=== PATIENT | female | born 1995 | race Caucasian/White ===

== ENCOUNTER 2021-12-28 19:16 | Emergency (ER) | payer OTHER ==
[~2021-12-28] VITALS: Ht 162.6 cm; Wt 75.8 kg
[~2021-12-28 19:16] MED LIST: FERR325E14 PO; IBUP-974 PO; PREN-385 PO
[2021-12-28 21:40] VITALS: BP 122/76
--- NOTE | 2021-12-28 21:43 | NUR ---
PT TO LOBBY.
[2021-12-28 22:25] LABS: APPEARANCE,URINE CLEAR (CLEAR); BILIRUBIN,URINE NEGATIVE (NEGATIVE); BLOOD, URINE 1+ (NEGATIVE); COLOR,URINE YELLOW (YELLOW); LEUKOCYTE ESTERASE ,URINE NEGATIVE (NEGATIVE); NITRITE, URINE NEGATIVE (NEGATIVE); UGLUCOSE NEGATIVE (NEGATIVE)
[2021-12-28 22:38] LABS: BASOPHILS % (AUTO) 0.4 % (0.0-2.0); HEMATOCRIT 38.4 % (36-48); HEMOGLOBIN 12.8 g/dL (12.0-16.0); LYMPHOCYTES # (AUTO) 0.9 K/uL (2.5-16.5); LYMPHOCYTES % (AUTO) 17.3 % (20.5-51.1); MEAN CORPUSCULAR HEMOGLOBIN 29 pg (27-31); MEAN CORPUSCULAR HGB CONC 33 g/dL (33-37); MEAN CORPUSCULAR VOLUME 87.2 fL (80-94); MONOCYTES # (AUTO) 0.3 K/uL (0.8-1.0); MONOCYTES % (AUTO) 6.4 % (1.7-9.3); NEUTROPHILS % (AUTO) 75.9 % (42.2-75.2); PLATELET COUNT (AUTO) 244 K/uL (140-450); RED BLOOD CELL COUNT(AUTO) 4.41 MIL/uL (4.20-5.40); RED CELL DISTRIBUTION WIDTH 14.1 % (11.6-13.7); WHITE BLOOD COUNT (AUTO) 5.2 K/uL (4.8-10.8)
[2021-12-28 22:40] LABS: RBC,URINE 0-5 /HPF (0-5); WBC,URINE 0-5 /HPF (0-5)
[2021-12-28 22:55] LABS: ALBUMIN 3.7 g/dL (3.4-5.0); ANION GAP 16.8 (8-16); CARBON DIOXIDE 25.6 mmol/L (21-32); CREATININE 0.7 mg/dL (0.6-1.3); POTASSIUM 3.4 mmol/L (3.5-5.1); TOTAL BILIRUBIN 0.3 mg/dL (0.0-1.0)
[2021-12-28] MEDS ORDERED: NACL 0.9% 1,000 ML IV ONE (23:40)
[2021-12-28] MEDS ORDERED: ONDANSETRON 4 MG/2 ML VIAL IVP ONE (23:40)
[2021-12-28] MEDS ORDERED: cefTRIAXone 1,000 MG VIAL ONE (23:53)
--- NOTE | 2021-12-29 00:07 | NUR ---
PT TAKEN TO ER BED 05
--- NOTE | 2021-12-29 01:40 | NUR ---
26YR OLD FEMALE BIB SELF C/O OF ABD PAIN V/D X1 DAY. PAIN IS SHARP AND RADIATES TO BACK PAIN LEVEL OF 8/10. PT IS A&OX4. SKIN WARM DRY AND INTACT. HOB ELEVATED. RESP EVEN AND UNLABORED. ON BEDSIDE CITRUS PICKER. NKDA NO MED HX
[2021-12-29] MEDS ORDERED: ONDA-188 SL (02:49)
[2021-12-29] MEDS ORDERED: CIPR500T4 PO (02:49)
--- NOTE | 2021-12-29 03:10 | NUR ---
Patient discharged with v/s stable. Written and verbal after care instructions given and explained. Patient alert, oriented and verbalized understanding of instructions. Ambulatory with steady gait. All questions addressed prior to discharge. ID band removed. Patient advised to follow up with PMD. Rx of CIPRO AND ZOFRAN given. Patient educated on indication of medication including possible reaction and side effects. Opportunity to ask questions provided and answered.
[2021-12-29 03:12] VITALS: BP 93/52
== END 2021-12-29 03:10 | disposition home or self-care (01) ==
LOC: MED 19:16
DX: N12 Tubulo-interstitial nephritis, not specified as acute or chronic (principal); R11.2 Nausea with vomiting, unspecified; M54.50 Low back pain, unspecified; Z79.899 Other long term (current) drug therapy
CPT/HCPCS: 36415; 80053; 81001; 81025; 85025; 87086; 96365; 96375; 99284; J0696; J2405; J7030

== ENCOUNTER 2022-09-27 09:05 | Emergency (ER) | payer BC, OTHER ==
[~2022-09-27] VITALS: Ht 162.6 cm; Wt 76.2 kg
[~2022-09-27 09:05] MED LIST changes: +CIPR500T4 PO; +ONDA-188 SL
[2022-09-27 09:36] VITALS: BP 109/67; PULSE 94; RESP 18; TEMP 97.6; O2SAT 98
--- NOTE | 2022-09-27 09:40 | NUR ---
Patient ambulated to bed 3.
--- NOTE | 2022-09-27 09:56 | NUR ---
bibs for low back pain since this am. no fall, trauma, urinary sx. + heavy lifting at work. ambulatory. reports sycopal episode this am. denies headache,n,v. aao x4. resp even and nonlabored. vss
[2022-09-27] MEDS ORDERED: IBUPROFEN 400 MG TAB PO ONE (10:25)
[2022-09-27] MEDS ORDERED: NAPR-1704 PO (10:28)
[2022-09-27 10:34] VITALS: BP 112/74; PULSE 78; RESP 19; TEMP 97.6; O2SAT 98
--- NOTE | 2022-09-27 10:35 | NUR ---
pain reassessment not done. d/c before due
== END 2022-09-27 10:35 | disposition home or self-care (01) ==
LOC: MED 09:05
DX: R55 Syncope and collapse (principal); M54.50 Low back pain, unspecified; H11.31 Conjunctival hemorrhage, right eye; Z79.899 Other long term (current) drug therapy
CPT/HCPCS: 81025; 99282

== ENCOUNTER 2022-10-01 23:16 | Emergency (ER) | payer BC, OTHER ==
[~2022-10-01] VITALS: Ht 162.6 cm; Wt 73.0 kg
[~2022-10-01 23:16] MED LIST changes: +NAPR-1704 PO
[2022-10-01 23:53] VITALS: BP 104/70; PULSE 70; RESP 16; TEMP 98; O2SAT 100
--- NOTE | 2022-10-01 23:53 | NUR ---
TO BED AMBULATORY
[2022-10-02] MEDS ORDERED: NACL 0.9% 1,000 ML IV ONE
--- NOTE | 2022-10-02 00:16 | NUR ---
URINE TO LAB.
[2022-10-02 00:21] LABS: BASOPHILS % (AUTO) 0.3 % (0.0-2.0); EOSINOPHILS % (AUTO) 0.9 % (0.0-4.0); HEMATOCRIT 34.1 % (36-48); HEMOGLOBIN 11.4 g/dL (12.0-16.0); LYMPHOCYTES # (AUTO) 1.8 K/uL (2.5-16.5); LYMPHOCYTES % (AUTO) 31.9 % (20.5-51.1); MEAN CORPUSCULAR HEMOGLOBIN 29 pg (27-31); MEAN CORPUSCULAR HGB CONC 33 g/dL (33-37); MEAN CORPUSCULAR VOLUME 87.5 fL (80-94); MONOCYTES # (AUTO) 0.7 K/uL (0.8-1.0); MONOCYTES % (AUTO) 12.5 % (1.7-9.3); NEUTROPHILS % (AUTO) 54.4 % (42.2-75.2); PLATELET COUNT (AUTO) 281 K/uL (140-450); RED CELL DISTRIBUTION WIDTH 15.2 % (11.6-13.7); WHITE BLOOD COUNT (AUTO) 5.6 K/uL (4.8-10.8)
[2022-10-02 00:23] LABS: APPEARANCE,URINE CLEAR (CLEAR); BILIRUBIN,URINE NEGATIVE (NEGATIVE); BLOOD, URINE 1+ (NEGATIVE); COLOR,URINE YELLOW (YELLOW); LEUKOCYTE ESTERASE ,URINE NEGATIVE (NEGATIVE); NITRITE, URINE NEGATIVE (NEGATIVE); UGLUCOSE NEGATIVE (NEGATIVE)
[2022-10-02 00:34] LABS: ALBUMIN 3.3 g/dL (3.4-5.0); CARBON DIOXIDE 27.7 mmol/L (21-32); CREATININE 0.6 mg/dL (0.6-1.3); POTASSIUM 3.7 mmol/L (3.5-5.1); TOTAL BILIRUBIN 0.3 mg/dL (0.0-1.0)
[2022-10-02 00:44] LABS: RBC,URINE 0-5 /HPF (0-5)
--- NOTE | 2022-10-02 00:46 | NUR ---
27 YO F BIB SELF C/O NAUSEA/DIARRHEA/CHILLS/MID ABDOMINAL PAIN X 3 DAYS. PT STATES PAIN LEVEL 2/10 NON RADIATING. AXO4. PT DENIES CP OR SOB. PT PREVIOUSLY SEEN IN THIS ER ON 09/27/22 FOR BACK PAIN DUE TO INJURY. NKDA HX BACK INJURY
[2022-10-02 01:45] VITALS: BP 104/70; PULSE 70; RESP 16; TEMP 98; O2SAT 100
--- NOTE | 2022-10-02 01:45 | NUR ---
Patient discharged with v/s stable. Written and verbal after care instructions given and explained. Patient verbalized understanding. Ambulatory with steady gait. All questions addressed prior to discharge. Advised to follow up with PMD.
== END 2022-10-02 01:45 | disposition home or self-care (01) ==
LOC: MED 23:16
DX: A08.4 Viral intestinal infection, unspecified (principal); Z79.899 Other long term (current) drug therapy
CPT/HCPCS: 36415; 80053; 81001; 85025; 87040; 96360; 99283; J7030